=== PATIENT | female | born 1965 | race Caucasian/White ===

== ENCOUNTER 2019-04-07 14:59 | Emergency (ER) | payer MEDICAID, SELFPAY ==
[2019-04-07 15:00] VITALS: BP 137/86; PULSE 88; RESP 16; TEMP 36.6; BMI 39.9
--- NOTE | 2019-04-07 15:25 | ED.DCSUM_ITS ---
- ER Visit Summary Date of Service: 04/07/19 Chief Complaint: [Pain to the right great toe] History of Present Illness: The patient is a 53 F [presents the emergency department pain and redness and swelling to the right great toe that started yesterday. Patient thought she was may be getting an ingrown toenail and is been squeezing at it. She denies any other injury. Patient has no medical history.] Physical Examination: [Right great toe-patient has a paronychia proximal to the nail. There is erythema and soft tissue swelling noted. There is noted purulent debris underneath the skin. No bony tenderness on exam. No lymphangitic streaking.] Test Results: [None indicated] Emergency Department Course and Treatment: Patient was offered incision and drainage of suspected paronychia to which she agreed. Wound was cleansed with an alcohol swab and using an 18-gauge needle a small 5 mm incision was made and moderate amount of purulent debris and blood was expressed. Clean dressing applied. Patient was treated with Keflex and Bactrim. [] Treatment Plan: Will be given a prescription for Keflex and Bactrim. Patient given a prescription for few [place] for pain. Patient advised to follow-up with primary care physician for wound check in 3 to 5 days. Patient advised to return if worsening pain, redness, swelling, or condition should worsen anyway. [] Disposition: [Discharged home in stable condition] Impression: [Right great toe paronychia with incision and drainage] This note was generated with [facility] dictation software. It may contain incorrect words, spelling, and punctuation that were not noted in review of the chart prior to signing ED Disposition - Plan for ED Patient: Referrals: Chilo Montaño DO [Primary Care Provider] -
--- NOTE | 2019-04-07 15:27 | DCINST.ED_ITS ---
ED Disposition - Plan for ED Patient: Instructions: Paronychia Prescriptions: Smz/Tmp Ds [Bactrim Ds] 1 tab PO BID #20 tab Prescription Printed Cephalexin [Keflex] 500 mg PO Q6 #40 cap Prescription Printed Hydrocodone Bitart/Apap 5-325 [[place] 5MG-325MG] 1 tab PO Q4H PRN PRN 2 Days #10 tab PRN Reason: Pain Prescription Printed Referrals: Chilo Montaño DO [Primary Care Provider] - 3-5 Days
[2019-04-07] MEDS: Cephalexin 250 MG Capsule 500 MG PO (15:41)
[2019-04-07] MEDS: Smz/Tmp Ds Tablet 1 TABLET PO (15:41)
[2019-04-07 15:43] VITALS: RESP 18
== END 2019-04-07 15:43 | disposition home or self-care (01) ==
LOC: ED 15:27
PROVIDERS: Emergency Provider Emergency Medicine; Family Provider Student in an Organized Health Care Education/Training Program; PCP Student in an Organized Health Care Education/Training Program
DX: L03.031 Cellulitis of right toe (principal)
CPT/HCPCS: 10060; 99283

== ENCOUNTER 2021-07-17 15:18 | Emergency (ER) | payer MEDICAID, SELFPAY ==
[2021-07-17 15:19] VITALS: BP 148/85; PULSE 75; RESP 17; TEMP 36.5; O2SAT 99; BMI 47.3
--- NOTE | 2021-07-17 16:11 | EDS_ITS ---
HPI History of Present Illness Chief Complaint: Other, Pain/Inj Informant: patient Onset/Context/Timing Onset: Yesterday Context: Gradual Onset Timing: Continuous Quality: Hurts Location: Right external nares Worsened by: Wearing a mask Relieved by: Nothing Narrative Narrative: Patient presents with nose pain that has been gradually getting worse since yesterday. Patient states is over the right external nares. Patient states it hurts. Patient states she is unable to describe the pain. Patient states it is worsened whenever she wears a mask. Patient states nothing makes it better. Patient denies any fevers or chills. Patient denies any discharge or drainage. Patient denies any rhinorrhea or sore throat. Patient denies any difficulty breathing. [facility] Medical History (Updated 07/17/21 @ 16:[address] Robert Davidson DO) Asthma GERD (gastroesophageal reflux disease) Home Medications montelukast 10 mg PO DAILY 02/04/15 [History Last Taken Unknown] omeprazole 20 mg PO DAILY 02/04/15 [History Last Taken Unknown] gabapentin 300 mg PO DAILY PRN PRN 04/07/19 [History Last Taken Unknown] oxybutynin chloride 5 mg PO DAILY 04/07/19 [History Last Taken Unknown] sulfamethoxazole-trimethoprim 1 tab PO BID #20 tab 04/07/19 [Rx Last Taken Unknown] cephalexin 500 mg PO Q6 #40 cap 07/17/21 [Rx Last Taken Unknown] tramadol 50 mg PO Q6H PRN PRN 3 Days #10 tab 07/17/21 [Rx Last Taken Unknown] Allergy/AdvReac Type Severity Reaction Status Date / Time cat dander Allergy Shortness Verified 07/17/21 15:19 of breath Surgical History (Updated 07/17/21 @ 16:[address] Robert Davidson DO) Hx of tubal ligation Social History Smoking Status: Never smoker ROS ROS ED Constitutional Constitutional ED: Denies chills or fever(s) Eyes Eyes: Denies blurry vision or change in vision ENT ENT ED: Denies rhinorrhea or sore throat Cardiovascular Cardiovascular: Denies chest pain or palpitations Respiratory/Chest Respiratory/Chest: Denies cough or dyspnea Gastrointestinal Gastrointestinal: Denies nausea or vomiting Genitourinary Genitourinary ED: Denies dysuria or hematuria Musculoskeletal Musculoskeletal: Reports neck pain; Denies back pain Integumentary Denies abscess or rash Neurologic Neurologic: Denies headache(s) or weakness Allergic/Immunologic Allergic/Immunologic ED: Denies mouth swelling or urticaria EXAM Physical Exam Const Vital Signs: 07/17/21 15:19 Temperature 97.7 F L Temperature Source Temporal Pulse Rate 75 Respiratory Rate 17 Blood Pressure 148/85 H Blood Pressure Mean 106 Pulse Ox 99 Oxygen Delivery Method Room Air Positive well nourished, well developed and obese General Appearance ED: well developed Nutritional Appearance: obese HEENT Reports moist mucous membranes HEENT Narrative: There is some tenderness with mild erythema over the external right nares. There is no fluctuance. There is no discharge or drainage. Nasal mucosa is pink and moist. There is no swelling on the anterior nares. Oral mucosa is pink and moist. Oropharynx is clear. Airway is patent. Eyes PERRL and EOMs intact bilaterally Neck supple and no JVD Neuro oriented x3, CN's II-XII intact bilaterally and no sensory deficits noted Sensorium / Orientation: alert Motor Exam: strength 5/5 throughout Psych mental status grossly normal MDM MDM MDM Narrative Medical decision making narrative: Patient was instructed to use warm compresses to this area. Patient was given a prescription for Keflex and a short course of tramadol. Patient was instructed to follow-up with her primary care physician in 3 to 5 days. Patient understood and was agreeable with the plan. All questions were answered. Discharge Plan Triage Chief Complaint: Other, Pain/Inj ED Provider: Robert Davidson Dx/Rx/DC Orders Clinical Impression: Cellulitis of external nose Instructions: ED Cellulitis, Facial Prescriptions: New tramadol 50 MG tablet 50 mg PO Q6H PRN PRN (Reason: Pain) 3 Days Qty: 10 RF: 0 Continued cephalexin 500 MG capsule 500 mg PO Q6 Qty: 40 RF: 0 No Action omeprazole 20 MG capsule 20 mg PO DAILY RF: 0 montelukast 10 MG tablet 10 mg PO DAILY RF: 0 gabapentin 300 capsule 300 mg PO DAILY PRN PRN (Reason: Pain Score 1-10/10) RF: 0 oxybutynin chloride 5 MG tablet 5 mg PO DAILY RF: 0 sulfamethoxazole-trimethoprim 1 TABLET tablet 1 tab PO BID Qty: 20 RF: 0 Primary Care Provider: Chilo Montaño Referrals: Chilo Montaño, [Primary Care Provider] - 3-5 Days Disposition Disposition: Home, Self Care
[2021-07-17 16:23] VITALS: RESP 22
== END 2021-07-17 16:24 | disposition home or self-care (01) ==
PROVIDERS: Emergency Provider Emergency Medicine; PCP Student in an Organized Health Care Education/Training Program; Visit Provider Emergency Medicine
DX: J34.0 Abscess, furuncle and carbuncle of nose (principal); Z68.42 Body mass index [BMI] 45.0-49.9, adult; E66.9 Obesity, unspecified; K21.9 Gastro-esophageal reflux disease without esophagitis; Z79.899 Other long term (current) drug therapy
CPT/HCPCS: 99282